=== PATIENT | female | born 1995 | race Two or more races ===

== ENCOUNTER → 2022-02-20 | Day surgery (SDC) | payer BC ==
[~2022-02-20] MED LIST: BUPIVACAINE 0.25% 30ML SDV ONE; CYMBALTA20 MG PO; FENTANYL CITRATE/PF 100MCG/2 ML INJ ONE; HUMALOG100 UNIT/1 SQ; NEURONTIN400 MG PO; NOVOLOG MI100 UNIT/1 SC; REGLAN5 MG PO; ULTRACET TABLE1 EACH PO; VITAMIN D3 COM1 EACH PO
[2022-02-20 11:31] LABS: HEMATOCRIT 41.7 % (34.2-44.1); HEMOGLOBIN 13.4 g/dL (12.0-16.0)
[2022-02-20 14:35] VITALS: BP 140/92
== END | disposition home or self-care (01) ==
LOC: OR 10:33
PROVIDERS: ATTEND Surgery
DX: K81.1 Chronic cholecystitis (principal); E10.9 Type 1 diabetes mellitus without complications; K29.70 Gastritis, unspecified, without bleeding; M79.672 Pain in left foot; M79.671 Pain in right foot; R20.0 Anesthesia of skin; M54.9 Dorsalgia, unspecified; F41.9 Anxiety disorder, unspecified; Z91.041 Radiographic dye allergy status; Z91.013 Allergy to seafood; Z20.822 Contact with and (suspected) exposure to COVID-19; Z79.899 Other long term (current) drug therapy; Z79.4 Long term (current) use of insulin; Z87.440 Personal history of urinary (tract) infections
CPT/HCPCS: 0223U; 36415; 47562; 81025; 82948; 85014; 85018; 88304; J0690; J3010